=== PATIENT | female | born 1930 | race Caucasian/White ===

== ENCOUNTER 2019-10-01 05:33 | Emergency (ER) | payer OTHER, SELFPAY ==
[~2019-10-01] VITALS: Ht 160 cm; Wt 77.1 kg
[2019-10-01 05:36] VITALS: Ht 160 cm; Wt 77.1 kg
[2019-10-01 06:23] LABS: ALKALINE PHOSPHATASE 91 U/L (46-116); ALT/SGPT 31 U/L (14-59); AST/SGOT 61 U/L (15-37); BILIRUBIN TOTAL 0.68 mg/dL (0.20-1.00); CALCIUM 7.3 mg/dL (8.5-10.1); CARBON DIOXIDE 14.8 mmol/L (21-32); CHLORIDE SERUM 92 mmol/L (98-107); CREATININE SERUM 2.2 mg/dL (0.6-1.0); GLUCOSE SERUM 238 mg/dL (74-106)
[2019-10-01 06:26] LABS: microscopic required? YES; urine erythrocyte 3+ (NEGATIVE)
[2019-10-01 06:51] LABS: PLATELET COUNT 245 x10^3mcL (130-400)
[2019-10-01 07:02] LABS: RED CELL DISTRIBUTION WIDTH 18.2 % (11.5-14.5)
[2019-10-01 07:07] LABS: ALBUMIN 1.2 g/dL (3.4-5.0); POTASSIUM SERUM 5.8 mmol/L (3.5-5.1); SODIUM SERUM 124 mmol/L (136-145); TOTAL PROTEIN, SERUM 4.2 g/dL (6.4-8.2)
[2019-10-01 08:16] VITALS: BP 128/38
[2019-10-01 09:40] LABS: C REACTIVE PROTEIN 3.3 mg/dL (<=0.9)
[2019-10-01 10:21] LABS: MONOCYTE 2 % (0-7); SEGMENTED NEUTROPHILS 4 % (37-75); rbc morphology (normal/abnorm) ABNORMAL (NORMAL)
[2019-10-01 10:22] LABS: burr cell (echinocyte) 2+
== END 2019-10-01 08:34 | disposition expired ==
LOC: ED 05:33 → IC 08:07 → ED 08:34
PROVIDERS: Emergency Medicine; Family Medicine
DX: J96.00 Acute respiratory failure, unspecified whether with hypoxia or hypercapnia (principal); R65.21 Severe sepsis with septic shock; E16.2 Hypoglycemia, unspecified; D64.9 Anemia, unspecified; N39.0 Urinary tract infection, site not specified; I48.20 Chronic atrial fibrillation, unspecified; I11.0 Hypertensive heart disease with heart failure; I50.9 Heart failure, unspecified; L30.4 Erythema intertrigo; Z85.6 Personal history of leukemia; Z20.828 Contact with and (suspected) exposure to other viral communicable diseases
CPT/HCPCS: 36600; 82962; 83880; 85378; 87804; J0456; J0696; J2370; J2704; J3490; J7040; J7050; J7060